=== PATIENT | female | born 1960 | race Caucasian/White ===

== ENCOUNTER 2018-03-14 11:07 | Emergency (ER) | payer BC ==
[~2018-03-14] VITALS: Ht 152.4 cm; Wt 59.0 kg
[2018-03-14 11:27] VITALS: BP 177/94
[2018-03-14] MEDS ORDERED: NEBI5TAB8 PO (11:32)
== END 2018-03-14 12:51 | disposition home or self-care (01) ==
LOC: ER 11:15
DX: J02.9 Acute pharyngitis, unspecified (principal); I10 Essential (primary) hypertension
CPT/HCPCS: 87070; 87880; 99284; A4606; Z7610; 86403-TC